=== PATIENT | female | born 1960 | race Caucasian/White ===

== ENCOUNTER 2016-10-11 11:59 | Emergency (ER) | payer MEDICAID ==
[2016-10-11 12:17] VITALS: BP 131/85; PULSE 75; RESP 16; TEMP 98.1; O2SAT 98
--- NOTE | 2016-10-11 12:42 | EDPHY ---
H & P Stated Complaint: RT WRIST INJURY Time Seen by Provider: 10/11/16 12:18 HPI/ROS: CHIEF COMPLAINT: Right wrist pain HISTORY OF PRESENT ILLNESS: This is a generally healthy 56-year-old female with a h/o osteoarthritis who has had right wrist pain for the past few weeks. She woke up 1 morning with her right forearm and wrist aching. She felt as if she might have "dislocated" her wrist by sleeping on it. A few days later, because the pain persisted, she saw her chiropractor. The chiropractor adjusted the wrist," putting it back in place". One week ago she was sitting on the edge of the bed, lost her balance, reached out with her right arm and caught herself on her outstretched hand. She has had right wrist pain since then. She saw her chiropractor again 2 days ago and had the wrist adjusted again. She has had increasing pain and swelling since then. She has noticed numbness at the tip of her right thumb. She is able to use the wrist but notes that rotational movements, such as turning and knob, are painful. No other injuries. No other joint pain. She has not had fever. REVIEW OF SYSTEMS: A ten point review of systems was performed and is negative with the exception of the items mentioned in the HPI. - Personal History Current Tetanus Diphtheria and Acellular Pertussis (TDAP): Yes Tetanus Vaccine Date: 2003 - Medical/Surgical History Hx Asthma: No Hx Chronic Respiratory Disease: No Hx Diabetes: No Hx Cardiac Disease: No Hx Renal Disease: No Hx Cirrhosis: No Hx Alcoholism: No Hx HIV/AIDS: No Hx Splenectomy or Spleen Trauma: No Other PMH: tonsils,lumpectomy x 4, uterine ablation. osteoarthritis - Social History Smoking Status: Current every day smoker Alcohol Use: Occasionally Drug Use: None Additional Social History: Lives with her . - Physical Exam Exam: General Appearance: Alert. Vital signs reviewed. Neck: No lymphadenopathy. Respiratory: Lungs are clear to auscultation; no wheezes, rales, or rhonchi. Cardiovascular: Regular rate and rhythm; no murmur, rub, or gallop. Gastrointestinal: Abdomen is soft and nontender, no masses or organomegaly, bowel sounds normal. Skin: Warm and dry, no rashes on exposed skin, normal color. Extremities: Swelling and tenderness along the lateral aspect of her right wrist extending onto the hand. No erythema or warmth. She has full active range of motion of this wrist but pain with any rotational movements. There is no other forearm, elbow, humerus, or shoulder pain to palpation. Pulses: 2+ radial pulse on the right. Neurological: Alert and oriented. Moving all four extremities easily and equally. 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 Sensation intact to light touch over both upper extremities. She reports subjective decrease in sensation at the tip of her right thumb. Psychiatric: Normal affect. Constitutional: Initial Vital Signs Temperature (C) 36.7 C 10/11/16 12:09 Heart Rate 75 10/11/16 12:09 Respiratory Rate 16 10/11/16 12:09 Blood Pressure 131/85 H 10/11/16 12:09 O2 Sat (%) 98 10/11/16 12:09 O2 Delivery Mode Room Air Allergies/Adverse Reactions: brompheniramine maleate [From Dimetapp (brompheniramine-PPA)] Allergy (Unknown, Verified 10/11/16 12:09) phenylpropanolamine HCl [From Dimetapp (brompheniramine-PPA)] Allergy (Unknown, Verified 10/11/16 12:09) egg [eggs] Allergy (Verified 10/11/16 12:09) Penicillins Allergy (Verified 10/11/16 12:09) Home Medications: Medication Instructions Recorded Claritin 12/13/13 Sudafed 24-Hour 04/16/15 Medical Decision Making - Diagnostics Imaging Results: Imaging Impressions Wrist X-Ray 10/11/16 12:40 Impression: 1. No acute osseous findings. 2. Scattered erosions, suspicious for rheumatoid arthritis. ED Course/Re-evaluation: I discussed the x-ray findings with the radiologist on duty. He he wonders about rheumatoid arthritis. She tells me that she has seen a joint cutter machine within the last few years and not been diagnosed with RA. There are no acute bony findings on her wrist x-ray. I think that she has a wrist sprain. A Velcro thumb spica wrist splint was placed by the emergency department electrical design technician. She will try this to see if it provides some pain relief. She will also continue with anti-inflammatory medication. I do not think that this is an infectious process. I do not think that this is gout. I am recommending follow up with her primary care physician if her pain persists. I recommend that she not have chiropractic adjustments done on this wrist. Differential Diagnosis: I considered a differential diagnosis that includes but is not limited to fracture, dislocation, sprain, strain, gout, septic joint. Departure - Departure Disposition: Home, Routine, Self-Care Clinical Impression: Right wrist sprain Qualifiers: Encounter type: initial encounter Qualified Code(s): S63.501A - Unspecified sprain of right wrist, initial encounter Condition: Good Instructions: RICE Therapy (ED), Wrist Sprain (ED) Additional Instructions: Wear the splint as needed for comfort. If you are not getting better you should follow up with her primary care physician. If you are worse in any way--new weakness, more numbness, increasing pain and swelling, any new or concerning symptoms--please be re- evaluated immediately. I recommend that you take ibuprofen, 400 mg, 3 times daily. Take this with food. Referrals: SATHYA ANTONIO DO [Other] - As per Instructions
== END 2016-10-11 14:07 | disposition home or self-care (01) ==
LOC: CED 11:59
DX: S63.501A Unspecified sprain of right wrist, initial encounter (principal); F17.200 Nicotine dependence, unspecified, uncomplicated; X58.XXXA Exposure to other specified factors, initial encounter
CPT/HCPCS: 73110-PO; L3807

== ENCOUNTER → 2018-01-12 | Outpatient (CLI) | payer OTHER | LOC: CIMAGING 12:11 | PROVIDERS: ATTEND Family Medicine | DX: J40 Bronchitis, not specified as acute or chronic (principal); J98.11 Atelectasis; Z87.891 Personal history of nicotine dependence | CPT/HCPCS: 71046-PO ==

== ENCOUNTER → 2018-09-09 | Outpatient (CLI) | payer OTHER | LOC: CIMAGING 09:54 ==